=== PATIENT | female | born 1970 | race Caucasian/White ===

== ENCOUNTER 2018-01-11 05:31 | Emergency (ER) | payer MEDICAID ==
[~2018-01-11] VITALS: Ht 162.6 cm; Wt 59.2 kg
[~2018-01-11 05:31] MED LIST: CLIN300C19 PO; HYDR-4383 PO
[2018-01-11 05:35] VITALS: BP 119/78
[2018-01-11] MEDS ORDERED: LIDOcaine 1.5% w/epinephrine 1:200,000 5ml ampul IJ ONE (06:05)
[2018-01-11] MEDS ORDERED: morphine 4 MG/ML inj SYRINge IV ONE (06:05)
[2018-01-11] MEDS ORDERED: ondansetron 4mg rapidly disintigrating tab PO ONE (06:05)
[2018-01-11] MEDS ORDERED: LIDOcaine 1% w/epiNEPHrine 1:200,000 30ml vial IJ ONE ×2 (06:15→07:15)
[2018-01-11] MEDS ORDERED: morphine 10mg/ml inj. IV ONE (06:15)
[2018-01-11] MEDS ORDERED: SULF1TAB49 PO (07:37)
[2018-01-11] MEDS ORDERED: HYDR-3965 PO (07:37)
[2018-01-11] MEDS ORDERED: CEPH500C5 PO (07:37)
== END 2018-01-11 07:43 | disposition home or self-care (01) ==
LOC: ER 05:32
DX: L02.31 Cutaneous abscess of buttock (principal); F15.90 Other stimulant use, unspecified, uncomplicated; F17.200 Nicotine dependence, unspecified, uncomplicated; Z90.710 Acquired absence of both cervix and uterus; Z79.2 Long term (current) use of antibiotics; Z79.899 Other long term (current) drug therapy
CPT/HCPCS: 10060; 96374; 99283; J2270; J3490

== ENCOUNTER 2018-05-04 02:33 | Emergency (ER) | payer MEDICAID ==
[~2018-05-04] VITALS: Ht 162.6 cm; Wt 56.8 kg
[2018-05-04 02:41] VITALS: BP 154/62
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
== END 2018-05-04 04:04 | disposition left against medical advice (07) ==
LOC: ER 02:34
DX: S61.451A Open bite of right hand, initial encounter (principal); Z53.21 Procedure and treatment not carried out due to patient leaving prior to being seen by health care provider; W54.0XXA Bitten by dog, initial encounter; Y93.89 Activity, other specified; Y92.89 Other specified places as the place of occurrence of the external cause; Y99.8 Other external cause status

== ENCOUNTER 2018-10-03 06:13 | Emergency (ER) | payer MEDICAID ==
[~2018-10-03] VITALS: Ht 162.6 cm; Wt 55.9 kg
[2018-10-03] MEDS ORDERED: azithromycin 250mg tablet PO ONE (07:00)
[2018-10-03] MEDS ORDERED: CefTRIAXone 250MG IM Kit w/LIDOcaine IM ONE (07:00)
[2018-10-03 07:33] VITALS: BP 133/79
== END 2018-10-03 08:02 | disposition home or self-care (01) ==
LOC: ER 06:15
DX: Z11.3 Encounter for screening for infections with a predominantly sexual mode of transmission (principal); F17.200 Nicotine dependence, unspecified, uncomplicated; F15.90 Other stimulant use, unspecified, uncomplicated; F10.99 Alcohol use, unspecified with unspecified alcohol-induced disorder; Z90.710 Acquired absence of both cervix and uterus; Z98.890 Other specified postprocedural states; Z79.899 Other long term (current) drug therapy; Y90.9 Presence of alcohol in blood, level not specified
CPT/HCPCS: 36415; 87491; 87591; 96372; 99283; J0696

== ENCOUNTER 2019-01-14 11:41 | Emergency (ER) | payer MEDICAID ==
[~2019-01-14] VITALS: Ht 162.6 cm; Wt 56.8 kg
[2019-01-14 11:54] VITALS: BP 121/79
[2019-01-14] MEDS ORDERED: IBUP-1984 PO (13:16)
== END 2019-01-14 13:20 | disposition home or self-care (01) ==
LOC: ER 11:41
DX: J02.9 Acute pharyngitis, unspecified (principal); R51 Headache; F10.99 Alcohol use, unspecified with unspecified alcohol-induced disorder; F15.90 Other stimulant use, unspecified, uncomplicated; F17.200 Nicotine dependence, unspecified, uncomplicated; Z90.710 Acquired absence of both cervix and uterus; Z79.899 Other long term (current) drug therapy; Y90.9 Presence of alcohol in blood, level not specified
CPT/HCPCS: 87081; 87880; 99283

== ENCOUNTER 2019-01-17 23:23 | Emergency (ER) | payer MEDICAID ==
[~2019-01-17] VITALS: Ht 162.6 cm; Wt 58.9 kg
[~2019-01-17 23:23] MED LIST changes: +IBUP-1984 PO
[2019-01-17 23:31] VITALS: BP 142/83
[2019-01-17] MEDS ORDERED: AZIT250T2 PO (23:42)
== END 2019-01-17 23:54 | disposition home or self-care (01) ==
LOC: ER 23:23
DX: J06.9 Acute upper respiratory infection, unspecified (principal); F17.200 Nicotine dependence, unspecified, uncomplicated; F10.99 Alcohol use, unspecified with unspecified alcohol-induced disorder; F15.90 Other stimulant use, unspecified, uncomplicated; Z90.710 Acquired absence of both cervix and uterus; Z98.890 Other specified postprocedural states; Z79.899 Other long term (current) drug therapy; Y90.9 Presence of alcohol in blood, level not specified
CPT/HCPCS: 71046; 99283

== ENCOUNTER 2019-11-22 18:20 | Emergency (ER) | payer MEDICAID ==
[~2019-11-22] VITALS: Ht 162.6 cm; Wt 58.0 kg
[~2019-11-22 18:20] MED LIST changes: -IBUP-1984 PO
[2019-11-22 18:22] VITALS: BP 93/70
[2019-11-22] MEDS ORDERED: cephalexin 250mg capsule PO ONE (19:15)
[2019-11-22] MEDS ORDERED: sulfamethoxazole/trimethoprim DS (800/160mg) tablet PO ONE (19:15)
[2019-11-22] MEDS ORDERED: SULF1TAB49 PO (19:19)
[2019-11-22] MEDS ORDERED: LACT1CAP65 PO (19:19)
[2019-11-22] MEDS ORDERED: CEPH500C5 PO (19:19)
== END 2019-11-22 20:01 | disposition home or self-care (01) ==
LOC: ER 18:21
DX: S60.411A Abrasion of left index finger, initial encounter (principal); I89.1 Lymphangitis; F15.10 Other stimulant abuse, uncomplicated; Z90.710 Acquired absence of both cervix and uterus; Z98.890 Other specified postprocedural states; Z72.89 Other problems related to lifestyle; Z79.2 Long term (current) use of antibiotics; Z79.899 Other long term (current) drug therapy; X58.XXXA Exposure to other specified factors, initial encounter; Y93.89 Activity, other specified; Y92.89 Other specified places as the place of occurrence of the external cause; Y99.8 Other external cause status
CPT/HCPCS: 99283

== ENCOUNTER 2020-01-09 08:30 | Emergency (ER) | payer MEDICAID ==
[~2020-01-09] VITALS: Ht 162.6 cm; Wt 5.9 kg
[~2020-01-09 08:30] MED LIST changes: +LACT1CAP65 PO
[2020-01-09] MEDS ORDERED: DICL100G15 TOP (09:41)
[2020-01-09] MEDS ORDERED: NAPR-56 PO (09:41)
[2020-01-09 09:47] VITALS: BP 144/86
== END 2020-01-09 09:47 | disposition home or self-care (01) ==
LOC: ER 08:31
DX: S46.811A Strain of other muscles, fascia and tendons at shoulder and upper arm level, right arm, initial encounter (principal); M25.521 Pain in right elbow; F15.90 Other stimulant use, unspecified, uncomplicated; Z90.710 Acquired absence of both cervix and uterus; Z98.890 Other specified postprocedural states; Z72.89 Other problems related to lifestyle; Z79.2 Long term (current) use of antibiotics; Z79.899 Other long term (current) drug therapy; X58.XXXA Exposure to other specified factors, initial encounter; Y93.89 Activity, other specified; Y92.89 Other specified places as the place of occurrence of the external cause; Y99.8 Other external cause status
CPT/HCPCS: 73080; 99283

== ENCOUNTER 2020-02-05 01:16 | Emergency (ER) | payer MEDICAID ==
[~2020-02-05] VITALS: Ht 162.6 cm; Wt 59.1 kg
[~2020-02-05 01:16] MED LIST changes: +DICL100G15 TOP; +NAPR-56 PO
[2020-02-05 01:24] VITALS: BP 139/92
== END 2020-02-05 02:01 | disposition home or self-care (01) ==
LOC: ER 01:16
DX: Z00.00 Encounter for general adult medical examination without abnormal findings (principal); F15.90 Other stimulant use, unspecified, uncomplicated; Z90.710 Acquired absence of both cervix and uterus; Z98.890 Other specified postprocedural states; Z72.89 Other problems related to lifestyle; Z79.2 Long term (current) use of antibiotics; Z79.899 Other long term (current) drug therapy
CPT/HCPCS: 99281

== ENCOUNTER 2020-03-10 14:37 | Emergency (ER) | payer MEDICAID ==
[~2020-03-10] VITALS: Ht 162.6 cm; Wt 57.3 kg
[~2020-03-10 14:37] MED LIST changes: -NAPR-56 PO
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
[2020-03-10] MEDS ORDERED: DOXYCYCLINE 100MG CAPSULE PO STA (15:12)
[2020-03-10] MEDS ORDERED: CEPH500C5 PO ×2 (15:13→15:14)
[2020-03-10] MEDS ORDERED: DOXY100C43 PO ×2 (15:13→15:14)
[2020-03-10] MEDS ORDERED: cephalexin 500mg capsule PO ONE (15:15)
[2020-03-10 15:38] VITALS: BP 110/71
== END 2020-03-10 15:41 | disposition home or self-care (01) ==
LOC: ER 14:38
DX: L03.317 Cellulitis of buttock (principal); L02.31 Cutaneous abscess of buttock; F12.90 Cannabis use, unspecified, uncomplicated; Z86.19 Personal history of other infectious and parasitic diseases; Z85.43 Personal history of malignant neoplasm of ovary; Z79.2 Long term (current) use of antibiotics; Z79.899 Other long term (current) drug therapy; Z90.710 Acquired absence of both cervix and uterus; Z72.89 Other problems related to lifestyle
CPT/HCPCS: 99283

== ENCOUNTER 2021-02-11 02:02 | Emergency (ER) | payer MEDICAID ==
[~2021-02-11] VITALS: Ht 162.6 cm; Wt 60.5 kg
[~2021-02-11 02:02] MED LIST changes: +CEPH-585 PO; +DOXY100C43 PO
[2021-02-11 02:13] VITALS: BP 137/78
[2021-02-11] MEDS ORDERED: albuterol 2.5 MG/3 ML nebule NEB ONE (04:25)
[2021-02-11] MEDS ORDERED: ALBU8HFA PO (04:40)
[2021-02-11] MEDS ORDERED: dexamethasone 4mg tablet PO ONE (04:40)
== END 2021-02-11 04:48 | disposition home or self-care (01) ==
LOC: ER 02:03
DX: R05.9 Cough, unspecified (principal); Z20.822 Contact with and (suspected) exposure to COVID-19; R06.02 Shortness of breath; R07.89 Other chest pain; F17.200 Nicotine dependence, unspecified, uncomplicated; F15.90 Other stimulant use, unspecified, uncomplicated; Z72.89 Other problems related to lifestyle; Z85.43 Personal history of malignant neoplasm of ovary; Z86.19 Personal history of other infectious and parasitic diseases; Z79.2 Long term (current) use of antibiotics; Z79.899 Other long term (current) drug therapy
CPT/HCPCS: 71045; 87635; 93005; 99285; C9803

== ENCOUNTER 2021-07-19 14:29 | Emergency (ER) | payer MEDICAID ==
[~2021-07-19] VITALS: Ht 162.6 cm; Wt 60.0 kg
[2021-07-19 15:26] LABS: BASOPHILS # (AUTO) 0.1 X10'3 (0-0.2); EOSINOPHILS # (AUTO) 0.4 X10'3 (0-0.9); EOSINOPHILS % (AUTO) 4.5 % (0-6); HEMATOCRIT 39.8 % (35.0-45.0); HEMOGLOBIN 13.2 g/dl (12.0-16.0); LYMPHOCYTES # (AUTO) 3.3 X10'3 (1.1-4.8); LYMPHOCYTES % (AUTO) 36.4 % (21-51); MEAN CORPUSCULAR HGB CONC 33.2 g/dL (33.0-36.5); MEAN CORPUSCULAR VOLUME 81.3 FL (78-98); MEAN PLATELET VOLUME 7.8 FL (7.4-10.4); MONOCYTES # (AUTO) 0.8 X10'3 (0-0.9); MONOCYTES % (AUTO) 8.7 % (2-12); NEUTROPHILS # (AUTO) 4.5 X10'3 (1.8-7.7); NEUTROPHILS % (AUTO) 49.4 % (42-75); PLATELET COUNT 244 X10'3 (140-440); RED CELL DISTRIBUTION WIDTH 14.1 % (11.5-14.5); WHITE BLOOD COUNT 9.2 X10'3 (4.5-11.0)
[2021-07-19 15:38] LABS: ALANINE AMINOTRANSFERASE 25 U/L (12-78); ALBUMIN 3.7 G/DL (3.4-5.0); ALKALINE PHOSPHATASE 47 IU/L (46-116); ANION GAP 5 (8-16); ASPARTATE AMINO TRANSFERASE 57 U/L (10-37); BILIRUBIN,TOTAL 0.3 MG/DL (0.1-1.0); BLOOD UREA NITROGEN 18 MG/DL (7-18); BUN/CREATININE RATIO 21.2 (6.6-38.0); CALCIUM 8.9 MG/DL (8.5-10.1); CHLORIDE 107 MMOL/L (99-107); CREATININE 0.85 MG/DL (0.40-0.90); GLUCOSE 72 MG/DL (70-104); POTASSIUM 3.7 MMOL/L (3.5-5.1); SODIUM 142 MMOL/L (135-145); TOTAL CARBON DIOXIDE 29.7 MMOL/L (24-32); TOTAL PROTEIN 7.4 G/DL (6.4-8.2); eGFR 71 ML/MIN
[2021-07-19 16:16] VITALS: BP 117/73
== END 2021-07-19 16:32 | disposition left against medical advice (07) ==
LOC: ER 14:29
DX: R07.9 Chest pain, unspecified (principal); R06.02 Shortness of breath; F15.10 Other stimulant abuse, uncomplicated; Z79.899 Other long term (current) drug therapy
CPT/HCPCS: 36415; 71045; 80053; 83880; 84484; 85025; 93005; 99285

== ENCOUNTER 2022-01-16 20:45 | Emergency (ER) | payer MEDICAID | END 2022-01-16 21:26 | disposition left against medical advice (07) | LOC: ER 20:45 | DX: R05.9 Cough, unspecified (principal); Z53.21 Procedure and treatment not carried out due to patient leaving prior to being seen by health care provider ==

== ENCOUNTER 2022-01-18 06:57 | Emergency (ER) | payer MEDICAID ==
[~2022-01-18] VITALS: Ht 162.6 cm; Wt 54.5 kg
[2022-01-18 07:13] VITALS: BP 103/61
[2022-01-18] MEDS ORDERED: ACET-2119 PO (11:14)
[2022-01-18] MEDS ORDERED: IBUP-1984 PO (11:14)
== END 2022-01-18 11:30 | disposition home or self-care (01) ==
LOC: ER 06:59
DX: J06.9 Acute upper respiratory infection, unspecified (principal); F15.20 Other stimulant dependence, uncomplicated; Z90.710 Acquired absence of both cervix and uterus
CPT/HCPCS: 87502; 87503; 99283

== ENCOUNTER 2022-07-14 05:09 | Emergency (ER) | payer MEDICAID | END 2022-07-14 05:42 | disposition left against medical advice (07) | LOC: ER 05:11 | DX: H92.09 Otalgia, unspecified ear (principal); Z53.21 Procedure and treatment not carried out due to patient leaving prior to being seen by health care provider ==

== ENCOUNTER 2022-08-27 13:14 | Emergency (ER) | payer MEDICAID ==
[~2022-08-27] VITALS: Ht 162.6 cm; Wt 59.4 kg
[2022-08-27 13:45] VITALS: BP 107/61
[2022-08-27] MEDS ORDERED: SULF1TAB49 PO (14:22)
[2022-08-28] MEDS ORDERED: RIFA300C9 PO (23:43)
== END 2022-08-27 14:33 | disposition home or self-care (01) ==
LOC: ER 13:14
DX: L02.512 Cutaneous abscess of left hand (principal); F17.200 Nicotine dependence, unspecified, uncomplicated; F15.10 Other stimulant abuse, uncomplicated; Z90.49 Acquired absence of other specified parts of digestive tract; Z79.899 Other long term (current) drug therapy
CPT/HCPCS: 99283

== ENCOUNTER 2022-08-28 20:04 | Emergency (ER) | payer MEDICAID ==
[~2022-08-28] VITALS: Ht 162.6 cm; Wt 59.1 kg
[~2022-08-28 20:04] MED LIST changes: +SULF1TAB49 PO
[2022-08-28] MEDS ORDERED: rifampin 300mg capsule PO SCH (23:25)
[2022-08-28] MEDS ORDERED: vancomycin/NS 1 GM ADD-VANTAGE 250 ML IV ONE (23:25)
[2022-08-28 23:42] LABS: BASOPHILS # (AUTO) 0.1 X10'3 (0-0.2); BASOPHILS % (AUTO) 0.5 % (0-1); EOSINOPHILS # (AUTO) 0.3 X10'3 (0-0.9); EOSINOPHILS % (AUTO) 2.5 % (0-6); HEMATOCRIT 39.4 % (35.0-45.0); HEMOGLOBIN 13.4 g/dl (12.0-16.0); LYMPHOCYTES # (AUTO) 2.9 X10'3 (1.1-4.8); LYMPHOCYTES % (AUTO) 23.6 % (21-51); MEAN CORPUSCULAR HEMOGLOBIN 28.3 PG (27.0-31.0); MEAN CORPUSCULAR HGB CONC 34.1 g/dL (33.0-36.5); MEAN CORPUSCULAR VOLUME 82.8 FL (78-98); MEAN PLATELET VOLUME 8.1 FL (7.4-10.4); MONOCYTES # (AUTO) 0.9 X10'3 (0-0.9); MONOCYTES % (AUTO) 7.2 % (2-12); NEUTROPHILS # (AUTO) 8.1 X10'3 (1.8-7.7); NEUTROPHILS % (AUTO) 66.2 % (42-75); PLATELET COUNT 224 X10'3 (140-440); RED BLOOD COUNT 4.75 X10'6 (4.20-5.60); RED CELL DISTRIBUTION WIDTH 13.7 % (11.5-14.5); WHITE BLOOD COUNT 12.2 X10'3 (4.5-11.0)
[2022-08-28] MEDS ORDERED: RIFA300C9 PO (23:43)
--- NOTE | 2022-08-28 23:51 | NUR ---
Dr Miles states he doesn't want blood cultures.
[2022-08-28 23:57] LABS: ALANINE AMINOTRANSFERASE 25 U/L (12-78); ALBUMIN 3.5 G/DL (3.4-5.0); ALKALINE PHOSPHATASE 54 IU/L (46-116); ANION GAP 8 (8-16); ASPARTATE AMINO TRANSFERASE 52 U/L (10-37); BILIRUBIN,TOTAL 0.2 MG/DL (0.1-1.0); BLOOD UREA NITROGEN 9 MG/DL (7-18); BUN/CREATININE RATIO 9.6 (10.0-20.0); CALCIUM 9.4 MG/DL (8.5-10.1); CHLORIDE 104 MMOL/L (99-107); CREATININE 0.94 MG/DL (0.40-0.90); GLUCOSE 100 MG/DL (70-104); POTASSIUM 3.7 MMOL/L (3.5-5.1); SODIUM 140 MMOL/L (135-145); TOTAL CARBON DIOXIDE 28.3 MMOL/L (24-32); TOTAL PROTEIN 6.9 G/DL (6.4-8.2); eGFR 63 ML/MIN
[2022-08-29 01:24] VITALS: BP 110/71
== END 2022-08-29 01:24 | disposition home or self-care (01) ==
LOC: ER 20:04
DX: L03.012 Cellulitis of left finger (principal); F17.200 Nicotine dependence, unspecified, uncomplicated; Z90.710 Acquired absence of both cervix and uterus
CPT/HCPCS: 10061; 36415; 80053; 83605; 84145; 85025; 96365; 96366; 99284; J3370

== ENCOUNTER 2024-08-22 17:57 | Emergency (ER) | payer MEDICAID ==
[~2024-08-22] VITALS: Ht 162.6 cm; Wt 58.9 kg
[~2024-08-22 17:57] MED LIST changes: +RIFA300C65 PO; -SULF1TAB49 PO
[2024-08-22 18:03] VITALS: BP 132/69; PULSE 103; RESP 18; TEMP 97.7; O2SAT 96
[2024-08-22] MEDS ORDERED: AMOX-580 PO (20:00)
--- NOTE | 2024-08-22 20:00 | Physician Documentation ---
History of Present Illness ~ Chief Complaint: Bite-animal Stated Complaint: DOG BITE Time Seen by MD: 18:43 Primary Medical Doctor: huy [facility] This is a 54-year-old female who presents a dog bite to the right upper forearm, patient reports tetanus booster in the last five years. Tetanus within 5 years?: No Medication Reconciliation Allergies: Coded Allergies: No Known Allergies (Unverified , 08/22/24) Scheduled Amox Tr/Potassium Clavulanate 875/125 MG (Augmentin 875/125 MG), 1 TAB PO Q12H Cephalexin*Monohydrate* (Keflex*), 2 CAP PO BID Clindamycin Hcl (Clindamycin Hcl), 1 CAP PO [id number] Diclofenac Sodium (Voltaren), 1 GM TOP Q6H Doxycycline Monohydrate (Doxycycline Monohydrate), 100 MG PO BID Hydrocodone/Acetaminophen (Park 5-325 Tablet), 1 TAB PO Q12H PRN Lactobacillus Acidophilus (Probiotic), 1 CAP PO Q8H Rifampin (Rifampin), 300 MG PO BID Past Medical History Past Medical History: No Pertinent History, Hepatitis C, MRSA Abscess, Ovarian Cancer Past Surgical History: no surgical history, hysterectomy, other Alcohol Use: None Drug Use: none Lives with: Family Occupation: employed Review of Systems ROS Dog bite as stated above in the HPI, otherwise all systems are reviewed and negative. Physical Exam Vital Signs: Temperature: 97.7, Source: Temporal, Heart Rate: 103, Respiratory Rate: 18, BP: 132/69, Pulse Oximetry: 96, Weight: 58.850 Physical Exam VITALS: Reviewed and as above. GENERAL: Alert, nontoxic appearing, no apparent distress. RESPIRATORY: No increased work of breathing, no respiratory distress, speaking in full clear sentences MUSCULOSKELETAL: No swelling or deformity, full range of motion in right arm without pain SKIN: Puncture wound to posterior aspect of right upper forearm, puncture wound to anterior aspect of right upper forearm, no active bleeding, no erythema, no ecchymosis Progress Results/Orders Results/Orders Completed Orders - ADRIAN WHITE FORGING PRESS SETTER UP Amox Tr/Potassium Clavulanate (Augmentin (08/22/24 20:05) Ibuprofen Tablet (Motrin Tablet) (08/22/24 20:05) Vital Signs 08/22/24 18:03 Temp 97.7 Pulse 103 Resp 18 B/P (MAP) 132/69 Pulse Ox 96 Medical Decision Making Findings This 54-year-old female presented with two shallow appearing puncture wounds due to a dog bite earlier in the day, there was no evidence of retained foreign body and patient reported thoroughly irrigating the wound prior to arrival and reported Tdap in the last five years. It is reassuring that the dog is a neighbor's dog and is able to be monitored therefore rabies prophylaxis not indicated. Remainder of physical exam was benign and patient is otherwise well- appearing, reporting no other injuries and no other injuries observed on physical exam. Patient is appropriate for outpatient follow up and discharged on course of oral antibiotics. Home care instructions, follow up instructions and return to care precautions discussed with the patient who verbalized understanding. Differential Dx:Considerations: Include: Abrasion, Cellulitis, Contusion, Fracture, Hematoma, Laceration, Neurovascular injury, Retained foreign body, Urticaria Departure Disposition: 01 HOME / SELF CARE / HOMELESS Impression: Primary Impression: Dog bite Qualified Codes: W54.0XXA - Bitten by dog, initial encounter Condition: Improved Discharge Instructions: Animal Bite, Adult Additional Instructions: Please take the antibiotics as prescribed. Keep the wounds clean dry and covered. You may use ibuprofen and or Tylenol as directed by [id number] packaging as needed for pain. Please follow up with your primary care provider in the next few days. Please return to the emergency department for any new or worsening concerning symptoms including but not limited to worsening pain and swelling to the area or if you develop a fever over 100.4. Referrals: NO PRIMARY CARE PROVIDER (PCP) Prescriptions Amox Tr/Potassium Clavulanate 875/125 MG (Augmentin 875/125 MG) 875 Mg-125 Mg Tablet 1 TAB PO Q12H for 7 Days, #14 TAB Prov: ADRIAN WHITE 08/22/24 Education Educated: Patient Educated regarding: diagnosis, treatment, prognosis, need for follow up Signature Scribe Signature: No scribe Attestation: The note accurately reflects work and decisions made by me.SMITA Flor 08/23/24 02:07 ADRIAN WHITE Aug 22, 2024 20:00
[2024-08-22] MEDS ORDERED: amox tr/potassium clavulanate 875/125mg TAB PO ONE (20:05)
[2024-08-22] MEDS ORDERED: ibuprofen tablet 400 MG TABLET PO ONE (20:05)
== END 2024-08-22 20:17 | disposition home or self-care (01) ==
LOC: ER 17:58
DX: S51.831A Puncture wound without foreign body of right forearm, initial encounter (principal); Z79.899 Other long term (current) drug therapy; W54.0XXA Bitten by dog, initial encounter; Y93.89 Activity, other specified; Y92.89 Other specified places as the place of occurrence of the external cause; Y99.8 Other external cause status
CPT/HCPCS: 99283